=== PATIENT | female | born 1990 | race Asian ===

== ENCOUNTER 2017-11-19 05:50 | Inpatient (IN) | payer OTHER ==
[2017-11-19] VITALS (63 sets, daily range): BP systolic 97–128; BP diastolic 47–86; PULSE 71–103; TEMP 97.8–99.2
[~2017-11-19] VITALS: Ht 152.4 cm; Wt 55.0 kg
[2017-11-19] MEDS ORDERED: PRENATAL MVI (06:29)
[2017-11-19 07:35] LABS: BASO % 0.3 % (0.0-2.0); EOS % 0.1 % (0-4.0); GRAN # 6.8 (1.4-6.5); GRAN % 72.1 % (42.2-75.2); LYMPH % 21.4 % (20.0-51.0); MEAN CELL VOLUME 81 fl (80.0-100.0); MEAN CORPUSCULAR HGB CONC 32 g/dl (33.0-37.0); MEAN PLATELET VOLUME 9.9 fl (7.4-10.4); MONO # 0.5 (0.1-0.6); MONO % 5.4 % (1.7-9.3); PLATELET COUNT 262 K/mm3 (130-400); RED BLOOD COUNT 4.23 M/mm3 (4.10-5.30); REDCELL DISTRIBUTION WIDTH-CV 15.3 % (11.5-14.5)
[2017-11-19 07:41] LABS: HEMATOCRIT 34.1 % (37.0-47.0); HEMOGLOBIN 10.9 g/dl (12.5-16.0); MEAN CORPUSCULAR HEMOGLOBIN 26 pg (27.0-31.0)
[2017-11-19 07:46] LABS: TRICYCLIC ANTIDEPRESS URINE NEGATIVE
[2017-11-20 00:05] VITALS: BP 95/55; PULSE 100; TEMP 98.9
[2017-11-20 04:15] VITALS: BP 109/61; PULSE 86; TEMP 98.1
[2017-11-20 07:45] VITALS: BP 99/61; PULSE 74; TEMP 97.9
[2017-11-20 11:53] VITALS: BP 92/51; PULSE 90; TEMP 97.9
[2017-11-20] MEDS ORDERED: MOTRIN 800800 MG/TAB PO (14:31)
[2017-11-20] MEDS ORDERED: PERCOCET 325 MG1 TA2 PO (14:31)
[2017-11-20 15:57] VITALS: BP 102/67; PULSE 94; TEMP 97.6
[2017-11-20 20:40] VITALS: BP 91/59; PULSE 89; TEMP 97.9
[2017-11-21 08:59] VITALS: BP 101/69; PULSE 96; TEMP 98
== END 2017-11-21 15:00 | disposition home or self-care (01) | DRG 775 ==
LOC: LDRO 05:50 → LDR 06:44 → OB 06:44
PROVIDERS: Obstetrics & Gynecology
PROC: 10E0XZZ Delivery of Products of Conception, External Approach (ICD-10-PCS; principal; 2017-11-19)
PROC: 0KQM0ZZ Repair Perineum Muscle, Open Approach (ICD-10-PCS; 2017-11-19)
DX: O42.013 Preterm premature rupture of membranes, onset of labor within 24 hours of rupture, third trimester (principal); Z3A.36 36 weeks gestation of pregnancy; Z37.0 Single live birth; O70.1 Second degree perineal laceration during delivery; Z23 Encounter for immunization
CPT/HCPCS: J1200; J2540; J2590; J7120

== ENCOUNTER → 2017-11-28 | Outpatient (CLI) | payer OTHER ==
[~2017-11-28] MED LIST: MOTRIN 800800 MG/TAB PO; PERCOCET 325 MG1 TA2 PO; PRENATAL MVI
== END ==
LOC: LAC 16:01
DX: Z39.1 Encounter for care and examination of lactating mother (principal); Z71.89 Other specified counseling